=== PATIENT | female | born 1955 | race Caucasian/White ===

== ENCOUNTER 2018-04-04 14:10 | Emergency (ER) | payer OTHER ==
[~2018-04-04] VITALS: Ht 154.9 cm; Wt 57.0 kg
[~2018-04-04 14:10] MED LIST: ASPI-1159 PO; ATEN50TA PO; FURO20TA4 PO; LEVOTHYROXINE PO; LOSA50TA20 PO
[2018-04-04 14:17] VITALS: BP 161/90
== END 2018-04-04 22:00 | disposition left against medical advice (07) ==
LOC: ER 14:38
DX: R07.89 Other chest pain (principal); Z53.21 Procedure and treatment not carried out due to patient leaving prior to being seen by health care provider

== ENCOUNTER 2019-09-13 09:26 | Inpatient (IN) | payer OTHER, MEDICARE ==
[~2019-09-13] VITALS: Ht 160 cm; Wt 59.0 kg
[2019-09-13] VITALS (20 sets, daily range): BP systolic 86–142; BP diastolic 46–87
[~2019-09-13 09:26] MED LIST changes: -ASPI-1159 PO; +ASPI-1497 PO; -LOSA50TA20 PO; +LOSA50TA41 PO
[2019-09-13] MEDS ORDERED: SODIUM CHLORIDE 0.9% 1,000 ML IV ONE (09:43)
[2019-09-13 10:22] LABS: BASOPHILS % 0.2 % (0.0-2.0); EOSINOPHILS % 1.9 % (0.0-5.0); HEMATOCRIT. 36.1 % (36.0-48.0); HEMOGLOBIN. 12.1 g/dL (12.0-16.0); LYMPHOCYTES % 15.5 % (20.0-50.0); MEAN CORPUSCULAR HEMOGLOBIN 28.7 pg (28.0-32.0); MEAN PLATELET VOLUME 6.5 fl (7.4-10.4); MONOCYTES % 3.5 % (2.0-8.0); NEUTROPHILS % 78.9 % (40.0-76.0); PLATELET 332 x1000/uL (130-400); RED CELL DISTRIBUTION WIDTH 15.8 % (11.6-14.6)
[2019-09-13 10:27] LABS: CHLORIDE 85 mEq/L (98-107)
[2019-09-13 10:32] LABS: PROTHROMBIN TIME 10.4 sec (9.6-11.0)
[2019-09-13 11:14] LABS: CLARITY URINE CLOUDY (CLEAR); COLOR URINE YELLOW (YELLOW); KETONES URINE NEGATIVE (NEGATIVE); LEUKOCYTE ESTERASE URINE 1+ (NEGATIVE); NITRITE URINE NEGATIVE (NEGATIVE); OCCULT BLOOD URINE 1+ (NEGATIVE); PROTEIN URINE NEGATIVE (NEGATIVE); SPECIFIC GRAVITY URINE 1.019 (1.005-1.030)
[2019-09-13 11:47] LABS: BG BASE EXCESS -6.5 mmol/L (-2.0-2.0); BG CARBOXYHEMOGLOBIN 0.1 % (0.5-1.5); BG DEOXYHEMOGLOBIN 1.7 % (0.0-5.0); BG HCO3 ACT 20.4 mmol/L (22.0-26.0); BG METHEMOGLOBIN 0.3 % (0.0-1.5); BG OXYGEN SATURATION 98.3 % (92.0-98.5); BG OXYHEMOGLOBIN 97.9 % (94.0-97.0); BG PCO2 46.4 mmHg (35.0-45.0); BG PH 7.261 (7.350-7.450); BG PO2 132.9 mmHg (75.0-100.0); BG SAMPLE SITE RIGHT BRACHIAL; BG TOTAL HEMOGLOBIN 10.8 g/dL (12.0-18.0); BG VENT MODE MASK - NRB
[2019-09-13] MEDS ORDERED: CEFTRIAXONE 1 G PREMIX 50 ML IV ONE (13:00)
[2019-09-13] MEDS ORDERED: LORAZEPAM 2MG/ML CPJ IV ONE (13:00)
[2019-09-13] MEDS ORDERED: SODIUM BICARBONATE 4% (2.4MEQ) 5ML VIAL IV ONE (13:31)
[2019-09-13] MEDS ORDERED: LIDOCAINE HCL 1% 20ML VIAL (Pyxis) INJ ONE (13:31)
[2019-09-13] MEDS ORDERED: IPRATROPIUM/ALBUTEROL 0.5-3(2.5)MG/3ML NEB NEB PRN (14:00)
[2019-09-13] MEDS ORDERED: CLONIDINE 0.1MG TABLET PO PRN (14:00)
[2019-09-13] MEDS ORDERED: GUAIFENESIN 200MG/10ML SUGAR FREE UDC PO PRN (14:00)
[2019-09-13] MEDS ORDERED: DOCUSATE SODIUM 100MG CAPSULE PO PRN (14:00)
[2019-09-13] MEDS ORDERED: ACETAMINOPHEN 325MG TABLET PO PRN (14:00)
[2019-09-13] MEDS ORDERED: ONDANSETRON HCL 4MG/2ML INJ IV PRN (14:00)
[2019-09-13] MEDS ORDERED: PIPERACILLIN/TAZ 3.375G PREMIX 50 ML IV SCH (14:00)
[2019-09-13 16:19] LABS: VITAMIN B12 SERUM > 2000.0 pg/mL (211-911)
[2019-09-13 17:44] LABS: BG BASE EXCESS 5.4 mmol/L (-2.0-2.0); BG BILEVEL POS AIRWAY PRESSURE 15/5; BG CARBOXYHEMOGLOBIN 0.5 % (0.5-1.5); BG DEOXYHEMOGLOBIN 3.1 % (0.0-5.0); BG FRACTION INSPIRED OXYGEN 60; BG HCO3 ACT 34.8 mmol/L (22.0-26.0); BG METHEMOGLOBIN 0.1 % (0.0-1.5); BG OXYGEN SATURATION 96.9 % (92.0-98.5); BG OXYHEMOGLOBIN 96.3 % (94.0-97.0); BG PCO2 82.2 mmHg (35.0-45.0); BG PH 7.244 (7.350-7.450); BG PO2 100.4 mmHg (75.0-100.0); BG SAMPLE SITE RIGHT BRACHIAL; BG TOTAL HEMOGLOBIN 10.7 g/dL (12.0-18.0); BG VENT MODE MASK - BIPAP
[2019-09-13] MEDS ORDERED: SODIUM POLYSTYRENE SULFONATE 15 G/60 ML BOT PR NR (18:00)
[2019-09-13] MEDS: PIPERACILLIN/TAZOBACTAM 3.375 G in DEXT 5% WATER 100 ML IV SCH (19:00)
[2019-09-13 20:18] LABS: BG BASE EXCESS 4.6 mmol/L (-2.0-2.0); BG CARBOXYHEMOGLOBIN 0.3 % (0.5-1.5); BG DEOXYHEMOGLOBIN 0.7 % (0.0-5.0); BG FRACTION INSPIRED OXYGEN 100; BG HCO3 ACT 29.7 mmol/L (22.0-26.0); BG OXYGEN SATURATION 99.3 % (92.0-98.5); BG PCO2 46.5 mmHg (35.0-45.0); BG PH 7.423 (7.350-7.450); BG PO2 230.7 mmHg (75.0-100.0); BG SAMPLE SITE RIGHT BRACHIAL; BG TIDAL VOLUME(mL) 450 mL; BG TOTAL HEMOGLOBIN 10.8 g/dL (12.0-18.0); BG VENT MODE VENT - A/C; BG VENT RATE 12 set
[2019-09-13] MEDS: ENOXAPARIN 40MG/0.4ML SYR SUBCUT SCH (22:12)
[2019-09-13] MEDS: FUROSEMIDE 40MG/4ML VIAL IV SCH (22:12)
[2019-09-14] VITALS (91 sets, daily range): BP systolic 31–142; BP diastolic 13–86
[2019-09-14] MEDS: FENTANYL CITRATE/PF 500 MCG in SODIUM CHLORIDE 0.9% 40 ML IV PRN ×2 (00:14→13:16)
[2019-09-14] MEDS: MIDAZOLAM HCL 50 MG in DEXTROSE 5% WATER 40 ML IV PRN (00:14)
[2019-09-14] MEDS: PIPERACILLIN/TAZOBACTAM 3.375 G in DEXT 5% WATER 100 ML IV SCH (02:01)
[2019-09-14] MEDS: NOREPINEPHRINE 8 MG in DEXT 5% WATER 242 ML IV PRN ×2 (02:01→09:26)
[2019-09-14 05:15] LABS: BASOPHILS % 0.2 % (0.0-2.0); EOSINOPHILS % 1.2 % (0.0-5.0); HEMOGLOBIN. 9.9 g/dL (12.0-16.0); LYMPHOCYTES % 8.2 % (20.0-50.0); MEAN CORPUSCULAR HEMOGLOBIN 28.7 pg (28.0-32.0); MEAN CORPUSCULAR VOLUME 86.7 fL (81.0-99.0); MEAN PLATELET VOLUME 6.8 fl (7.4-10.4); MONOCYTES % 4.9 % (2.0-8.0); NEUTROPHILS % 85.5 % (40.0-76.0); PLATELET 306 x1000/uL (130-400); RED BLOOD CELL COUNT 3.46 mill/uL (4.2-5.4); RED CELL DISTRIBUTION WIDTH 15.6 % (11.6-14.6)
[2019-09-14 05:25] LABS: CHLORIDE 87 mEq/L (98-107)
[2019-09-14 05:32] LABS: LDL CHOLESTEROL 36 mg/dL (5-100)
[2019-09-14 05:33] LABS: HDL CHOLESTEROL 45 mg/dL (40-59)
[2019-09-14 08:24] LABS: BG BASE EXCESS 7.7 mmol/L (-2.0-2.0); BG CARBOXYHEMOGLOBIN 0.3 % (0.5-1.5); BG DEOXYHEMOGLOBIN 3.1 % (0.0-5.0); BG FRACTION INSPIRED OXYGEN 60; BG HCO3 ACT 37.3 mmol/L (22.0-26.0); BG METHEMOGLOBIN 0.1 % (0.0-1.5); BG OXYGEN SATURATION 96.9 % (92.0-98.5); BG OXYHEMOGLOBIN 96.5 % (94.0-97.0); BG PCO2 86.8 mmHg (35.0-45.0); BG PH 7.251 (7.350-7.450); BG SAMPLE SITE RIGHT RADIAL; BG TOTAL HEMOGLOBIN 10.6 g/dL (12.0-18.0); BG VENT MODE VENT - PCV; BG VENT RATE 12 set
[2019-09-14] MEDS: FUROSEMIDE 40MG/4ML VIAL IV SCH (09:00)
[2019-09-14] MEDS: IPRATROPIUM/ALBUTEROL 0.5-3(2.5)MG/3ML NEB HHN SCH ×3 (09:09→20:30)
[2019-09-14] MEDS ORDERED: PHENYLEPHRINE 40 MG in DEXT 5% WATER 496 ML IV PRN (09:45)
[2019-09-14] MEDS ORDERED: ALBUMIN HUMAN 25GM/500ML (5%) IV SCH (10:00)
[2019-09-14] MEDS: DEXT 5%/0.9% NACL 1,000 ML IV SCH (11:15)
[2019-09-14] MEDS ORDERED: PIPERACILLIN/TAZOBACTAM 3.375 G in DEXT 5% WATER 100 ML IV SCH (12:00)
[2019-09-14 13:53] LABS: BG BASE EXCESS 1.5 mmol/L (-2.0-2.0); BG CARBOXYHEMOGLOBIN 0.2 % (0.5-1.5); BG DEOXYHEMOGLOBIN 2.9 % (0.0-5.0); BG FRACTION INSPIRED OXYGEN 80; BG HCO3 ACT 31.3 mmol/L (22.0-26.0); BG METHEMOGLOBIN 0.1 % (0.0-1.5); BG OXYGEN SATURATION 97.1 % (92.0-98.5); BG OXYHEMOGLOBIN 96.8 % (94.0-97.0); BG PCO2 84.1 mmHg (35.0-45.0); BG PH 7.188 (7.350-7.450); BG PO2 107.4 mmHg (75.0-100.0); BG SAMPLE SITE RIGHT RADIAL; BG TOTAL HEMOGLOBIN 10.1 g/dL (12.0-18.0); BG VENT MODE VENT - PCV; BG VENT RATE 18 set
[2019-09-14] MEDS: MEROPENEM 500 MG in SODIUM CHLORIDE 0.9% 50 ML IV SCH ×2 (14:10→21:59)
[2019-09-14] MEDS: AZITHROMYCIN 500 MG in DEXT 5% WATER 250 ML IV SCH (16:35)
[2019-09-14] MEDS ORDERED: VANCOMYCIN 1500MG in DEXTROSE 5% WATER 250ML IV NR (17:00)
[2019-09-14] MEDS ORDERED: SODIUM CHLORIDE 0.9% 250 ML IV NR (17:45)
[2019-09-14] MEDS ORDERED: SODIUM BICARBONATE 8.4% 1 MEQ/ML 50ML SYR IV NR ×2 (17:45→21:34)
[2019-09-14] MEDS: EPINEPHRINE 1 MG in SODIUM CHLORIDE 0.9% 249 ML IV PRN (18:00)
[2019-09-14] MEDS: ENOXAPARIN 40MG/0.4ML SYR SUBCUT SCH (18:00)
[2019-09-14] MEDS: NOREPINEPHRINE 32 MG in DEXT 5% WATER 468 ML IV PRN (19:00)
[2019-09-14] MEDS: VASOPRESSIN 10 UNIT in SODIUM CHLORIDE 0.9% 99.5 ML IV PRN (20:26)
[2019-09-14] MEDS: PHENYLEPHRINE 80 MG in DEXT 5% WATER 492 ML IV PRN (20:27)
[2019-09-14 21:07] LABS: BG CARBOXYHEMOGLOBIN 0.2 % (0.5-1.5); BG DEOXYHEMOGLOBIN 0.4 % (0.0-5.0); BG FRACTION INSPIRED OXYGEN 100; BG HCO3 ACT 31.3 mmol/L (22.0-26.0); BG METHEMOGLOBIN 0.3 % (0.0-1.5); BG OXYGEN SATURATION 99.6 % (92.0-98.5); BG OXYHEMOGLOBIN 99.1 % (94.0-97.0); BG PCO2 88.6 mmHg (35.0-45.0); BG PH 7.166 (7.350-7.450); BG PO2 312.2 mmHg (75.0-100.0); BG SAMPLE SITE RIGHT BRACHIAL; BG TOTAL HEMOGLOBIN 10.5 g/dL (12.0-18.0); BG VENT MODE VENT - PCV; BG VENT RATE 24 set
[2019-09-14] MEDS ORDERED: SODIUM BICARBONATE 50 MEQ in DEXTROSE 5% WATER 1,000 ML IV SCH (22:30)
[2019-09-14 23:50] LABS: BG BASE EXCESS 9.6 mmol/L (-2.0-2.0); BG CARBOXYHEMOGLOBIN 0.4 % (0.5-1.5); BG DEOXYHEMOGLOBIN 0.9 % (0.0-5.0); BG FRACTION INSPIRED OXYGEN 80; BG HCO3 ACT 41.3 mmol/L (22.0-26.0); BG METHEMOGLOBIN 0.2 % (0.0-1.5); BG OXYGEN SATURATION 99.1 % (92.0-98.5); BG OXYHEMOGLOBIN 98.5 % (94.0-97.0); BG PCO2 115.7 mmHg (35.0-45.0); BG PH 7.171 (7.350-7.450); BG PO2 168.1 mmHg (75.0-100.0); BG SAMPLE SITE RIGHT BRACHIAL; BG TOTAL HEMOGLOBIN 10.7 g/dL (12.0-18.0); BG VENT MODE VENT - PCV; BG VENT RATE 24 set
[2019-09-15] VITALS (107 sets, daily range): BP systolic 51–171; BP diastolic 16–113
[2019-09-15] MEDS: VASOPRESSIN 10 UNIT in SODIUM CHLORIDE 0.9% 99.5 ML IV PRN ×2 (01:18→17:36)
[2019-09-15] MEDS: IPRATROPIUM/ALBUTEROL 0.5-3(2.5)MG/3ML NEB HHN SCH ×3 (02:00→14:26)
[2019-09-15 02:04] LABS: BG BASE EXCESS 8.2 mmol/L (-2.0-2.0); BG CARBOXYHEMOGLOBIN 0.1 % (0.5-1.5); BG DEOXYHEMOGLOBIN 1.8 % (0.0-5.0); BG FRACTION INSPIRED OXYGEN 80; BG HCO3 ACT 40.5 mmol/L (22.0-26.0); BG METHEMOGLOBIN 0.2 % (0.0-1.5); BG OXYGEN SATURATION 98.2 % (92.0-98.5); BG OXYHEMOGLOBIN 97.9 % (94.0-97.0); BG PCO2 124.4 mmHg (35.0-45.0); BG PO2 135.2 mmHg (75.0-100.0); BG SAMPLE SITE RIGHT BRACHIAL; BG TOTAL HEMOGLOBIN 10.4 g/dL (12.0-18.0); BG VENT MODE VENT - PCV; BG VENT RATE 30 set
[2019-09-15] MEDS ORDERED: VANCOMYCIN 750 MG in DEXT 5% WATER 250 ML IV SCH (03:00)
[2019-09-15] MEDS: PHENYLEPHRINE 80 MG in DEXT 5% WATER 492 ML IV PRN ×2 (03:05→18:29)
[2019-09-15 03:52] LABS: BG BASE EXCESS 7.1 mmol/L (-2.0-2.0); BG CARBOXYHEMOGLOBIN 0.3 % (0.5-1.5); BG DEOXYHEMOGLOBIN 1.3 % (0.0-5.0); BG FRACTION INSPIRED OXYGEN 80; BG HCO3 ACT 35.8 mmol/L (22.0-26.0); BG METHEMOGLOBIN 0.3 % (0.0-1.5); BG OXYGEN SATURATION 98.7 % (92.0-98.5); BG OXYHEMOGLOBIN 98.1 % (94.0-97.0); BG PCO2 80.6 mmHg (35.0-45.0); BG PH 7.266 (7.350-7.450); BG PO2 144.7 mmHg (75.0-100.0); BG SAMPLE SITE RIGHT BRACHIAL; BG TIDAL VOLUME(mL) 450 mL; BG TOTAL HEMOGLOBIN 9.5 g/dL (12.0-18.0); BG VENT MODE VENT - A/C; BG VENT RATE 30 set
[2019-09-15] MEDS: MEROPENEM 500 MG in SODIUM CHLORIDE 0.9% 50 ML IV SCH ×3 (06:29→23:03)
[2019-09-15] MEDS: FENTANYL CITRATE/PF 500 MCG in SODIUM CHLORIDE 0.9% 40 ML IV PRN ×3 (07:55→21:07)
[2019-09-15] MEDS: DEXT 5%/0.9% NACL 1,000 ML IV SCH (08:00)
[2019-09-15 08:46] LABS: BASOPHILS % 0.1 % (0.0-2.0); EOSINOPHILS % 1.5 % (0.0-5.0); HEMATOCRIT. 31.3 % (36.0-48.0); HEMOGLOBIN. 10.6 g/dL (12.0-16.0); MEAN CORPUSCULAR VOLUME 86.2 fL (81.0-99.0); MONOCYTES % 7.8 % (2.0-8.0); NEUTROPHILS % 79.6 % (40.0-76.0); PLATELET 163 x1000/uL (130-400); RED BLOOD CELL COUNT 3.64 mill/uL (4.2-5.4); RED CELL DISTRIBUTION WIDTH 15.1 % (11.6-14.6)
[2019-09-15 09:05] LABS: BG BASE EXCESS 7.8 mmol/L (-2.0-2.0); BG CARBOXYHEMOGLOBIN 0.3 % (0.5-1.5); BG DEOXYHEMOGLOBIN 4.7 % (0.0-5.0); BG FRACTION INSPIRED OXYGEN 70; BG HCO3 ACT 35.1 mmol/L (22.0-26.0); BG METHEMOGLOBIN 0.6 % (0.0-1.5); BG OXYGEN SATURATION 95.3 % (92.0-98.5); BG OXYHEMOGLOBIN 94.4 % (94.0-97.0); BG PCO2 65.1 mmHg (35.0-45.0); BG PH 7.349 (7.350-7.450); BG PO2 74.6 mmHg (75.0-100.0); BG SAMPLE SITE RIGHT BRACHIAL; BG TIDAL VOLUME(mL) 450 mL; BG TOTAL HEMOGLOBIN 10.2 g/dL (12.0-18.0); BG VENT MODE VENT - A/C; BG VENT RATE 30 set
[2019-09-15] MEDS: MIDAZOLAM HCL 50 MG in DEXTROSE 5% WATER 40 ML IV PRN (11:27)
[2019-09-15] MEDS ORDERED: SODIUM CHLORIDE 3% 500ML IV SOLN IV SCH (12:15)
[2019-09-15] MEDS ORDERED: SODIUM CHLORIDE 3% 500 ML IV ONE ×2 (13:30)
[2019-09-15] MEDS: NOREPINEPHRINE 32 MG in DEXT 5% WATER 468 ML IV PRN (13:45)
[2019-09-15 14:34] LABS: BG BASE EXCESS 8.4 mmol/L (-2.0-2.0); BG DEOXYHEMOGLOBIN 4.7 % (0.0-5.0); BG HCO3 ACT 36.7 mmol/L (22.0-26.0); BG OXYGEN SATURATION 95.3 % (92.0-98.5); BG OXYHEMOGLOBIN 95.3 % (94.0-97.0); BG PCO2 74.5 mmHg (35.0-45.0); BG PO2 78.6 mmHg (75.0-100.0); BG SAMPLE SITE RIGHT BRACHIAL; BG TIDAL VOLUME(mL) 400 mL; BG TOTAL HEMOGLOBIN 10.3 g/dL (12.0-18.0); BG VENT MODE VENT - A/C; BG VENT RATE 30 set
[2019-09-15] MEDS: SODIUM CHLORIDE 0.9% 1,000 ML IV SCH (15:58)
[2019-09-15] MEDS: AZITHROMYCIN 500 MG in DEXT 5% WATER 250 ML IV SCH (16:00)
[2019-09-15] MEDS: ENOXAPARIN 40MG/0.4ML SYR SUBCUT SCH (17:52)
[2019-09-15 20:31] LABS: BG BASE EXCESS 7.4 mmol/L (-2.0-2.0); BG DEOXYHEMOGLOBIN 10.8 % (0.0-5.0); BG FRACTION INSPIRED OXYGEN 70; BG HCO3 ACT 33.7 mmol/L (22.0-26.0); BG METHEMOGLOBIN 0.3 % (0.0-1.5); BG OXYGEN SATURATION 89.2 % (92.0-98.5); BG OXYHEMOGLOBIN 88.9 % (94.0-97.0); BG PCO2 57.1 mmHg (35.0-45.0); BG PH 7.389 (7.350-7.450); BG PIP 60 cmH2O; BG PO2 54.2 mmHg (75.0-100.0); BG SAMPLE SITE RIGHT RADIAL; BG TIDAL VOLUME(mL) 450 mL; BG TOTAL HEMOGLOBIN 10.5 g/dL (12.0-18.0); BG VENT MODE VENT - A/C; BG VENT RATE 32 set
[2019-09-15] MEDS ORDERED: METOPROLOL TARTRATE 25MG TABLET ONE (20:41)
[2019-09-15 23:32] LABS: CHLORIDE 79 mEq/L (98-107)
[2019-09-16] VITALS (103 sets, daily range): BP systolic 35–193; BP diastolic 25–113
[2019-09-16] MEDS: PHENYLEPHRINE 80 MG in DEXT 5% WATER 492 ML IV PRN ×3 (00:49→16:00)
[2019-09-16] MEDS: VANCOMYCIN 750 MG in DEXT 5% WATER 250 ML IV SCH ×2 (00:49→18:00)
[2019-09-16 01:46] LABS: CHLORIDE 88 mEq/L (98-107)
[2019-09-16] MEDS: IPRATROPIUM/ALBUTEROL 0.5-3(2.5)MG/3ML NEB HHN SCH ×3 (01:46→13:39)
[2019-09-16] MEDS ORDERED: SODIUM CHLORIDE 3% 500 ML IV ONE (02:30)
[2019-09-16] MEDS: FENTANYL CITRATE/PF 500 MCG in SODIUM CHLORIDE 0.9% 40 ML IV PRN ×3 (02:55→16:00)
[2019-09-16] MEDS: MEROPENEM 500 MG in SODIUM CHLORIDE 0.9% 50 ML IV SCH ×2 (05:32→14:53)
[2019-09-16 05:44] LABS: BASOPHILS % 0.5 % (0.0-2.0); EOSINOPHILS % 1.5 % (0.0-5.0); HEMATOCRIT. 26.2 % (36.0-48.0); HEMOGLOBIN. 8.8 g/dL (12.0-16.0); LYMPHOCYTES % 8.7 % (20.0-50.0); MEAN CORPUSCULAR HEMOGLOBIN 28.6 pg (28.0-32.0); MEAN CORPUSCULAR VOLUME 85.4 fL (81.0-99.0); MEAN PLATELET VOLUME 7.4 fl (7.4-10.4); NEUTROPHILS % 84.3 % (40.0-76.0); PLATELET 157 x1000/uL (130-400); RED BLOOD CELL COUNT 3.07 mill/uL (4.2-5.4); RED CELL DISTRIBUTION WIDTH 15.8 % (11.6-14.6)
[2019-09-16 05:54] LABS: CHLORIDE 88 mEq/L (98-107)
[2019-09-16 07:45] LABS: BG BASE EXCESS 3.9 mmol/L (-2.0-2.0); BG CARBOXYHEMOGLOBIN 0.3 % (0.5-1.5); BG DEOXYHEMOGLOBIN 0.7 % (0.0-5.0); BG HCO3 ACT 27.9 mmol/L (22.0-26.0); BG METHEMOGLOBIN 0.3 % (0.0-1.5); BG OXYGEN SATURATION 99.3 % (92.0-98.5); BG OXYHEMOGLOBIN 98.7 % (94.0-97.0); BG PCO2 39.5 mmHg (35.0-45.0); BG PH 7.467 (7.350-7.450); BG PO2 183.3 mmHg (75.0-100.0); BG SAMPLE SITE RIGHT RADIAL; BG TIDAL VOLUME(mL) 450 mL; BG VENT MODE VENT - A/C
[2019-09-16] MEDS: NOREPINEPHRINE 32 MG in DEXT 5% WATER 468 ML IV PRN (12:37)
[2019-09-16] MEDS: SODIUM CHLORIDE 0.9% 1,000 ML IV SCH (14:53)
[2019-09-16] MEDS: AZITHROMYCIN 500 MG in DEXT 5% WATER 250 ML IV SCH (16:00)
[2019-09-16] MEDS: EPINEPHRINE 1 MG in SODIUM CHLORIDE 0.9% 249 ML IV PRN ×2 (17:50→19:57)
[2019-09-16] MEDS: ENOXAPARIN 40MG/0.4ML SYR SUBCUT SCH (18:00)
[2019-09-16] MEDS: VASOPRESSIN 10 UNIT in SODIUM CHLORIDE 0.9% 99.5 ML IV PRN (19:58)
[2019-09-16] MEDS ORDERED: CEFEPIME 1,000 MG in DEXTROSE 5% WATER 50 ML IV SCH (20:00)
== END 2019-09-16 21:40 | disposition expired | DRG 871 ==
LOC: ER 09:42 → 5EST 13:00 → EDBEDREQSVC 13:07 → EDBEDREQTM 13:07 → EDBEDREQ 13:07 → ENRESERV 13:24 → MICUNO 18:19
PROVIDERS: ADMIT Hospitalist; ATTEND Hospitalist
PROC: 5A09357 Assistance with Respiratory Ventilation, Less than 24 Consecutive Hours, Continuous Positive Airway Pressure (ICD-10-PCS; principal; 2019-09-13)
PROC: 0BH17EZ Insertion of Endotracheal Airway into Trachea, Via Natural or Artificial Opening (ICD-10-PCS; 2019-09-13)
PROC: 5A1945Z Respiratory Ventilation, 24-96 Consecutive Hours (ICD-10-PCS; 2019-09-13)
PROC: 02HV33Z Insertion of Infusion Device into Superior Vena Cava, Percutaneous Approach (ICD-10-PCS; 2019-09-13)
PROC: B548ZZA Ultrasonography of Superior Vena Cava, Guidance (ICD-10-PCS; 2019-09-13)
PROC: 5A12012 Performance of Cardiac Output, Single, Manual (ICD-10-PCS; 2019-09-14)
DX: A41.89 Other specified sepsis (principal); R65.21 Severe sepsis with septic shock; J96.00 Acute respiratory failure, unspecified whether with hypoxia or hypercapnia; E43 Unspecified severe protein-calorie malnutrition; J18.9 Pneumonia, unspecified organism; N17.0 Acute kidney failure with tubular necrosis; G93.40 Encephalopathy, unspecified; E87.2 Acidosis; E87.1 Hypo-osmolality and hyponatremia; N39.0 Urinary tract infection, site not specified; Z66 Do not resuscitate; J84.10 Pulmonary fibrosis, unspecified; I25.10 Atherosclerotic heart disease of native coronary artery without angina pectoris; E03.9 Hypothyroidism, unspecified; E87.5 Hyperkalemia; D64.9 Anemia, unspecified; I50.9 Heart failure, unspecified; B35.3 Tinea pedis; E86.1 Hypovolemia; I07.1 Rheumatic tricuspid insufficiency; I27.29 Other secondary pulmonary hypertension; I27.81 Cor pulmonale (chronic); I11.0 Hypertensive heart disease with heart failure; Z99.81 Dependence on supplemental oxygen; Z95.1 Presence of aortocoronary bypass graft; Z68.23 Body mass index [BMI] 23.0-23.9, adult; Z79.82 Long term (current) use of aspirin; Z79.899 Other long term (current) drug therapy
CPT/HCPCS: 36415; 36600; 71045; 76937; 80048; 80053; 80061; 80202; 81003; 82140; 82375; 82607; 82805; 82962; 83605; 83880; 83930; 83935; 84145; 84484; 85025; 87070; 87077; 87186; 87420; 87804; 92950; 93005; 93306; 93970; 94002; 94003; 94640; 94660; C1725; C1892; J0456; J0692; J0696; J1650; J1940; J2060; J2185; J2250; J2370; J2543; J3010; J3370; J3490; J7030; J7042; J7050; J7060; J7070; P9041